=== PATIENT | female | born 1950 | race Caucasian/White ===

== ENCOUNTER → 2020-11-02 12:48 | Outpatient (CLI) | payer MEDICARE, SELFPAY ==
--- NOTE | ~2020-11-02 | CT_ITS ---
EXAMINATION: CT lung screening DATE: 11/02/2020 13:05 INDICATION: Lung cancer screening. Personal history of tobacco dependence. TECHNIQUE: Computed tomography (CT) of the chest was performed without intravenous contrast. The dose -length product was 117.15 mGy-cm. Automated exposure control and iterative reconstruction technique were employed. COMPARISON: Chest dated 06/18/2018 FINDINGS: Heart size is normal. No significant pleural or pericardial effusion. No thoracic lymphaden opathy. There is coronary atherosclerosis. There is a questionable hypodense mass of the pancreatic b ruthie seen on the final image 127. No endobronchial lesions. 2 mm left upper lobe nodule which is subso lid, image 36. No focal airspace consolidation. No endobronchial lesions. No lytic or blastic lesions are identified. IMPRESSION: 1. Lung-RADS category 2: Benign appearance or behavior. Continue annual screening with noncontrast lo w-dose chest CT in 12 months. 2: Subtle hypodensity of the pancreatic body which may represent partial volume averaging artifact, a lthough mass cannot be excluded. Correlation with contrast-enhanced CT abdomen recommended. Reviewed, dictated and finalized at location B. IMPRESSION: 1. Lung-RADS category 2: Benign appearance or behavior. Continue annual screeni ng with noncontrast low-dose chest CT in 12 months. 2: Subtle hypodensity of the pancreatic body which may represent partial volume averaging artifact, although mass cannot be excluded. Correlation with contras t-enhanced CT abdomen recommended.
== END ==
PROVIDERS: PCP Family Medicine; Visit Provider Family Medicine
DX: M81.0 Age-related osteoporosis without current pathological fracture (principal); Z12.2 Encounter for screening for malignant neoplasm of respiratory organs; Z87.891 Personal history of nicotine dependence; E55.9 Vitamin D deficiency, unspecified; E78.2 Mixed hyperlipidemia; I10 Essential (primary) hypertension; R73.03 Prediabetes
CPT/HCPCS: 71271

== ENCOUNTER → 2020-11-09 10:23 | Outpatient (CLI) | payer MEDICARE, SELFPAY ==
--- NOTE | ~2020-11-09 | DEXA_ITS ---
Bone Density Report Name: Danni Reid Age: 70 Sex: Female Ethnicity: White Date of : 1950 Indication: osteopenia; postmenopausal Referring Provider: BEBA MORENO Study: Bone densitometry was performed. Exam Date: November 09, 2020 Accession number: [id number] Bone Density: Region BMD T-score Z-score Classification AP Spine (L1-L4) 0.852 -1.8 0.3 Osteopenia Femoral Neck (Left) 0.795 -0.5 1.3 Normal Total Hip (Left) 1.016 0.6 2.1 Normal Femoral Neck (Right) 0.796 -0.5 1.3 Normal Total Hip (Right) 0.937 0.0 1.4 Normal Total Hip Mean 0.977 0.3 1.8 Normal World Health Organization criteria for BMD impression classify patients as: Normal (T-score at or above -1.0), Osteopenia (T-score between -1.0 and -2.5), or Osteoporosis (T-score at or below -2.5). 10-year Fracture Risk(1): Major Osteoporotic Fracture 8.8% Hip Fracture 0.8% Reported Risk Factors: [place] (), Neck BMD=0.796, BMI=33.1, alcohol use (1) FRAX(R) Version 3.08. Fracture probability calculated for an untreated patient. Fracture probability may be lower if the patient has received treatment. Previous Exams: Region Exam Age BMD T-score BMD Change BMD Change Date g/cm2 vs Baseline vs Previous AP Spine(L1-L4) 11/09/2020 70 0.852 -1.8 -0.040* -0.040* 07/14/2017 67 0.892 -1.4 Total Hip(Left) 11/09/2020 70 1.016 0.6 0.014 0.014 07/14/2017 67 1.002 0.5 Total Hip(Right) 11/09/2020 70 0.937 0.0 0.013 0.013 07/14/2017 67 0.924 -0.1 *Denotes significance at 95% confidence level, LSC for AP Spine = 0.022 g/cm2, LSC for Total Hip = 0.027 g/cm2 Clinical Information Provided by Patient: Has 3 or more alcoholic drinks per day Has used the following medications: Vitamin D Patient maximum height was 64 Menopause Age: 51 No regular weight bearing exercise Onset of menses at age 13 Number of children 1 Impression: The patient has low bone mass, based on the Total Spine T-score. The patient has an estimated ten-year risk of hip fracture of 0.8% and an estimated ten-year risk of major fracture of 8.8%, based on the WHO FRAX algorithm. The patient has risk factors, including: excessive alcohol use. The BMD for the AP Spine(L1-L4) decreased, changing by -0.040 since the last DXA exam. Discussion: BONE DENSITY IS LOW AT ONE OR MORE SKELETAL SITES. This patient's lowest T-score is low at on
== END ==
PROVIDERS: Visit Provider Family Medicine
DX: Z78.0 Asymptomatic menopausal state (principal); M85.88 Other specified disorders of bone density and structure, other site
CPT/HCPCS: 77080

== ENCOUNTER → 2020-11-13 13:48 | Outpatient (CLI) | payer MEDICARE, SELFPAY ==
--- NOTE | ~2020-11-13 | CT_ITS ---
EXAMINATION: CT abdomen w con DATE: 11/13/2020 14:14 INDICATION: Pancreas mass. TECHNIQUE: Computed tomography (CT) of the abdomen was performed with 100 mL Omnipaque 350 intravenou s contrast. Automated exposure control and iterative reconstruction technique were employed. The dose -length product was 635.80 mGy-cm. COMPARISON: Chest CT 11/02/2020 FINDINGS: The visualized portions of the lung bases demonstrates minimal atelectasis. There is mild p eripheral radiation fibrosis in anterolateral right lung. No pleural effusion. The heart size is norm al. No pericardial effusion. The liver demonstrates an ill-defined area of transient hepatic attenuat ion difference in segment 4A. There are gallstones in the gallbladder, which is normal in size. The s pleen, pancreas, adrenal glands, and kidneys are normal. There are no pathologically enlarged lymph n odes. There is no free intraperitoneal fluid. There is mild lumbar spondylosis. IMPRESSION: 1. Normal pancreas. 2. Cholelithiasis. Reviewed, dictated and finalized at location A.
[2020-11-13 14:07] LABS: Estimated Glomerular Filt Rate > 60
== END ==
PROVIDERS: PCP Family Medicine; Visit Provider Family Medicine
DX: R93.89 Abnormal findings on diagnostic imaging of other specified body structures (principal); R16.0 Hepatomegaly, not elsewhere classified; K80.20 Calculus of gallbladder without cholecystitis without obstruction; M47.816 Spondylosis without myelopathy or radiculopathy, lumbar region
CPT/HCPCS: 74160; Q9967

== ENCOUNTER → 2020-11-29 07:46 | Outpatient (CLI) | payer MEDICARE, SELFPAY ==
--- NOTE | ~2020-11-29 | MR_ITS ---
EXAMINATION: MR abdomen wo/w con DATE: 11/29/2020 08:55 INDICATION: Liver mass. Breast cancer. TECHNIQUE: Magnetic resonance imaging (MRI) of the abdomen was performed without and with 17 mL Multi Tricia intravenous contrast. Sequences included coronal T2-weighted FS FSE, coronal and axial FS FIEST A, axial T2-weighted FSE, coronal LAVA-flex, axial STIR FSE, axial DWI, axial dual-echo T1-weighted F SPGR, and axial LAVA. Postcontrast sequences included coronal LAVA-flex and a time course of axial LA VA. COMPARISON: CT abdomen 11/13/2020 FINDINGS: There is diffuse hepatic steatosis. In segment VIII of the liver, there is a 2.1 cm mass with periphe ral hyperenhancement. There is a 0.6 cm hyperenhancing mass in right hepatic lobe. There is a 1.1 cm hyperenhancing mass in left hepatic lobe. No washout. There is a 6 mm cyst in the liver. There are g allstones in the gallbladder, which is normal in size. The spleen, pancreas, adrenal glands, and kidn eys are normal. There are no dilated loops of bowel. There are no pathologically enlarged lymph nodes . There is no free intraperitoneal fluid. IMPRESSION: 1. Three liver masses measuring up to 2.1 cm, most likely benign. Metastatic disease cannot be exclud ed given the history of breast cancer. Abdomen MRI without and with contrast in 3-6 months is recomme nded. Reviewed, dictated and finalized at location A. IMPRESSION: 1. Three liver masses measuring up to 2.1 cm, most likely benign. Metastatic di sease cannot be excluded given the history of breast cancer. Abdomen MRI withou t and with contrast in 3-6 months is recommended.
[2020-11-29 08:28] LABS: Estimated Glomerular Filt Rate > 60
== END ==
PROVIDERS: PCP Family Medicine; Visit Provider Family Medicine
DX: R93.2 Abnormal findings on diagnostic imaging of liver and biliary tract (principal); Z85.3 Personal history of malignant neoplasm of breast
CPT/HCPCS: 74183; A9577

== ENCOUNTER → 2021-02-20 12:28 | Outpatient (CLI) | payer MEDICARE, SELFPAY ==
--- NOTE | ~2021-02-20 | MR_ITS ---
EXAMINATION: MR abdomen wo/w con INDICATION: Abnormal findings on diagnostic imaging of the liver and biliary tract, patient with inde terminate liver masses and history of breast cancer TECHNIQUE: Coronal SSFSE ARC, WATER:coronal LAVA-FLEX, Coronal 2D FIESTA FatSat, Axial SSFSE BH ARC, Axial 3D DualEcho BH, Axial SSFSE-IR, Axial DWI b=500, Axial 2D FIESTA FatSat, pre and dynamic postco ntrast Axial LAVA ARC, postcontrast Coronal In and Opposed phase LAVA FLEX COMPARISON: 11/29/2020, 11/13/2020 CONTRAST: Multihance, 15 cc FINDINGS: There is a stable 2.1 cm subcapsular enhancing mass in liver segment VIII with central hypo intensity. A 1.5 cm enhancing mass is present in liver segment II, unchanged in size accounting for d ifferences in technique. There is a stable 6 mm enhancing mass in liver segment VII. A stable 8 mm en hancing mass is noted in liver segment III. No new liver mass is identified. Stones are present in th e nondistended gallbladder. The spleen, pancreas, and adrenal glands are normal. The kidneys are unre markable. There are no pathologically enlarged abdominal lymph nodes. No dilated loops of bowel are p resent. IMPRESSION: 1. Probably benign liver masses. Follow-up MRI without and with contrast in six months is recommended . Reviewed, dictated and finalized at location B. IMPRESSION: 1. Probably benign liver masses. Follow-up MRI without and with contrast in six months is recommended.
[2021-02-20 13:35] LABS: Estimated Glomerular Filt Rate > 60
== END ==
PROVIDERS: PCP Family Medicine; Visit Provider Family Medicine
DX: R93.2 Abnormal findings on diagnostic imaging of liver and biliary tract (principal)
CPT/HCPCS: 74183; A9577

== ENCOUNTER → 2021-04-19 10:34 | Outpatient (CLI) | payer MEDICARE, SELFPAY ==
--- NOTE | ~2021-04-19 | XR_ITS ---
EXAMINATION: XR chest 2V 04/19/2021 12:05 INDICATION: Dyspnea. Dementia. PROCEDURE: 2 view chest COMPARISON: 06/18/2018 FINDINGS: The lungs are clear. The cardiomediastinal silhouette is within normal limits. There are no pleural effusions. There is no pneumothorax suspected. IMPRESSION: 1: NO ACUTE CARDIOPULMONARY DISEASE. Reviewed, dictated and finalized at location A.
--- NOTE | ~2021-04-19 | MR_ITS ---
EXAMINATION: MR brain/brain stem wo arleen EXAM DATE: 04/19/2021 11:05 INDICATION: F03.90 - Unspecified dementia without behavioral disturbance. History breast cancer. TECHNIQUE: Magnetic resonance imaging (MRI) of the brain/brain stem obtained without contrast. Moses al T1, axial diffusion, gradient echo (T2*), T1, T2, FLAIR sequences obtained. There is no prior st udy for comparison. FINDINGS: There are no areas of restricted diffusion to suggest acute infarction. There is no acute hemorrhage seen on the T2*, a hemosiderin sensitive sequence. No intraparenchymal brain mass lesion. There is mild to moderate periventricular and subcortical T2/FLAIR signal hyperintensity, nonspecifi c but probably related to small vessel ischemic disease (microangiopathy). There are no extra-axia l collections. Flow voids are seen in the cerebral arteries on the T2-weighted sequences consistent with their expected patency. The orbits are unremarkable. Soft tissue is unremarkable. IMPRESSION: 1. No acute intracranial findings. 2. Mild to moderate microangiopathy. Reviewed, dictated and finalized at location B.
== END ==
PROVIDERS: PCP Family Medicine; Visit Provider Physician Assistant Medical
DX: F03.90 Unspecified dementia, unspecified severity, without behavioral disturbance, psychotic disturbance, mood disturbance, and anxiety (principal); R93.0 Abnormal findings on diagnostic imaging of skull and head, not elsewhere classified
CPT/HCPCS: 70551; 71046

== ENCOUNTER → 2021-09-16 11:57 | Outpatient (CLI) | payer MEDICARE, SELFPAY ==
--- NOTE | ~2021-09-16 | MR_ITS ---
EXAMINATION: MR abdomen wo/w con INDICATION: Hepatomegaly not elsewhere specified TECHNIQUE: Coronal SSFSE ARC, WATER:coronal LAVA-FLEX, Coronal 2D FIESTA FatSat, Axial SSFSE BH ARC, Axial 3D DualEcho BH, Axial SSFSE-IR, Axial DWI b=500, Axial 2D FIESTA FatSat, pre and dynamic postco ntrast Axial LAVA ARC, postcontrast Coronal In and Opposed phase LAVA FLEX COMPARISON: 02/20/2021, 11/29/2020 CONTRAST: Multihance, 15 cc FINDINGS: The liver is diffusely low in attenuation when compared with the spleen, consistent with he patic steatosis. There are stable enhancing masses in liver segment VIII (2.1 cm), liver segment II ( 1.5 cm), liver segment VII (6 mm), and liver segment III (8 mm). No new liver mass is identified. The spleen, pancreas, and adrenal glands are normal. Stones are present in the nondistended gallbladder. The kidneys are unremarkable. There are no pathologically enlarged abdominal lymph nodes. No dilated loops of bowel are present. IMPRESSION: 1. Stable, probably benign liver masses. Consider follow-up MRI without and with contrast in one year . 2. Cholelithiasis without evidence of cholecystitis. 3. Diffuse hepatic steatosis. Reviewed, dictated and finalized at location A. L INSTALLER IMPRESSION: 1. Stable, probably benign liver masses. Consider follow-up MRI without and wit h contrast in one year. 2. Cholelithiasis without evidence of cholecystitis. 3. Diffuse hepatic steatosis.
[2021-09-16 12:22] LABS: Estimated Glomerular Filt Rate > 60
== END ==
PROVIDERS: PCP Family Medicine; Visit Provider Family Medicine
DX: R16.0 Hepatomegaly, not elsewhere classified (principal); K76.0 Fatty (change of) liver, not elsewhere classified; K80.20 Calculus of gallbladder without cholecystitis without obstruction
CPT/HCPCS: 74183; A9577

== ENCOUNTER → 2023-04-27 14:10 | Outpatient (CLI) | payer MEDICARE, SELFPAY ==
--- NOTE | ~2023-04-27 | CT_ITS ---
EXAMINATION: CT lung screening DATE: 04/27/2023 14:31 INDICATION: Personal history of tobacco dependence TECHNIQUE: Computed tomography (CT) of the chest was performed without intravenous contrast. The dose -length product was 118.63 mGy-cm. Automated exposure control and iterative reconstruction technique were employed. COMPARISON: CT dated 11/02/2020 FINDINGS: Heart size normal. No significant pleural or pericardial effusion. There are gallstones. No thoracic lymphadenopathy. There is atherosclerosis of the aorta and coronary arteries. Stable 2 mm l eft upper lobe nodule. No endobronchial lesions. No pneumothorax. No new pulmonary nodules or masses. Mild thoracic spondylosis. IMPRESSION: 1. Lung-RADS category 2: Benign appearance or behavior. Continue annual screening with noncontrast lo w-dose chest CT in 12 months. Reviewed, dictated and finalized at location B. IMPRESSION: 1. Lung-RADS category 2: Benign appearance or behavior. Continue annual screeni ng with noncontrast low-dose chest CT in 12 months.
--- NOTE | ~2023-04-27 | MR_ITS ---
EXAMINATION: MR abdomen wo/w con DATE: 04/27/2023 15:22 INDICATION: Hepatomegaly, not elsewhere classified. Liver mass. TECHNIQUE: Magnetic resonance imaging (MRI) of the abdomen was performed without and with 17 mL Multi Tricia intravenous contrast. COMPARISON: Abdomen MRI 09/16/2021, 11/29/20 FINDINGS: There is diffuse hepatic steatosis. There are 3 hyperenhancing masses in the liver without washout me asuring up to 2.5 cm. There are cysts in the liver measuring up to 6 mm. There are gallstones in the gallbladder, which is normal in size. The spleen, pancreas, adrenal glands, and kidneys are normal. T here are no dilated loops of bowel. There are no pathologically enlarged lymph nodes. There is no isabella e intraperitoneal fluid. IMPRESSION: 1. Three liver masses, stable from 11/29/2020, likely hemangiomas or focal nodular hyperplasia. 2. Diffuse hepatic steatosis. Reviewed, dictated and finalized at location A. IMPRESSION: 1. Three liver masses, stable from 11/29/2020, likely hemangiomas or focal nodul ar hyperplasia. 2. Diffuse hepatic steatosis.
== END ==
PROVIDERS: PCP Nurse Practitioner Family; Visit Provider Nurse Practitioner Family
DX: Z12.2 Encounter for screening for malignant neoplasm of respiratory organs (principal); Z87.891 Personal history of nicotine dependence; K76.0 Fatty (change of) liver, not elsewhere classified; K76.9 Liver disease, unspecified
CPT/HCPCS: 71271; 74183; A9577

== ENCOUNTER 2024-03-18 09:31 | Outpatient (CLI) | payer MEDICARE, SELFPAY ==
--- NOTE | ~2024-03-18 | MR_ITS ---
EXAMINATION: MR brain/brain stem wo con DATE: 03/18/2024 10:14 INDICATION: Memory loss. Dementia. TECHNIQUE: Magnetic resonance imaging (MRI) of the brain and brainstem was performed without intraven ous contrast. COMPARISON: Brain MRI 04/19/2021 FINDINGS: There are scattered areas of nonspecific increased T2-weighted signal intensity in the cere bral white matter and latoya. There is no intracranial hemorrhage, acute infarction, or abnormal intrac ranial mass lesion. The ventricles are normal in size. The orbits are normal. The paranasal sinuses a re clear. The mastoid air cells are normal. IMPRESSION: 1. Moderate nonspecific cerebral white matter disease and pontine disease, which likely represents ch ronic small vessel ischemic disease, stable from 04/19/2021. Reviewed, dictated and finalized at location A. IMPRESSION: 1. Moderate nonspecific cerebral white matter disease and pontine disease, whic h likely represents chronic small vessel ischemic disease, stable from 1.
== END 2024-03-18 09:32 ==
LOC: GOSHIMG 09:32
PROVIDERS: PCP Family Medicine; Visit Provider Family Medicine
DX: R41.3 Other amnesia (principal); F03.90 Unspecified dementia, unspecified severity, without behavioral disturbance, psychotic disturbance, mood disturbance, and anxiety; R90.82 White matter disease, unspecified; G93.89 Other specified disorders of brain
CPT/HCPCS: 70551

== ENCOUNTER 2024-09-09 01:03 | Day surgery (SDC) | payer MEDICARE, SELFPAY ==
[2024-09-06 13:24] VITALS: BMI 31.0
--- OUTSIDE RECORDS SUMMARY | 2024-09-09 01:08 | XMS_ITS | Encounter Summary ---
Author Organization [facility] Address 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
--- OUTSIDE RECORDS SUMMARY | 2024-09-09 01:08 | XMS_ITS | Encounter Summary ---
Author Organization [facility] Address [address] [place] [address] Care Team Providers Care Steel Rule Die Maker Name Role Phone Emory Domínguez MD Primary Care Provider [phone]- [phone] Encounter Details Date Type Department Care Team (Latest Contact Info) Description 02/27/2004 Outpatient Historical [facility] Yung Morales MD NO ADDRESS ON FILE SCREENING MAMM-MAILG NEOPL-OTHER (Primary Dx) Social History Tobacco Use Types Packs/Day Years Used Date Smoking Tobacco: Never Assessed Comments Unknown Sex and Gender Information Value Date Recorded Sex Assigned at Not on file Legal Sex Female 4:41 AM PERSONAL COMPANION Gender Identity Not on file Sexual Orientation Not on file documented as of this encounter Plan of Treatment Not on file documented as of this encounter Visit Diagnoses Diagnosis Other screening mammogram- Primary documented in this encounter Care Teams Steel Rule Die Maker Relationship Specialty Start Date End Date Emory Domínguez MD [address] [place] [id number] PCP - General 11/02/00 documented as of this encounter
--- OUTSIDE RECORDS SUMMARY | 2024-09-09 01:08 | XMS_ITS | Clinical Summary ---
Author Organization [facility] Address [address] [place] [address] Care Team Providers Care Paper Cone Machine Tender Name Role Phone Rehana Domínguez MD Primary Care Provider + Shahriar Alcocer MD Unavailable Pearl Reeves MD Unavailable [phone] Vidya Olvera PhD Unavailable [phone] Allergies No known active allergies Medications alendronate (FOSAMAX) 35 mg tabletIndications :Post-Menopausal Osteoporosis Prevention 05/26/2018 Active atorvastatin (LIPITOR) 10 mg tablet 06/01/2018 Active multivitamin tabletIndications :Vitamin Deficiency Prevention Active PARoxetine (PAXIL) 20 mg tablet Take 20 mg by mouth daily 2 04/07/2019 Active Active Problems Problem Noted Date Diagnosed Date 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 Cancer Staging:Clinical stage from 01/08/2015:Stage 0(cTis (DCIS), cN0, cM0, ER+, KS+, HER2: Not Assessed) - Signed by Vidya Olvera, PhD on 03/16/2019 Pathologic stage from 02/19/2015:Stage 0(pTis (DCIS), pN0, cM0, ER+, KS+, HER2: Not Assessed) - Signed by Vidya Olvera, PhD on 03/16/2019 History of breast cancer 06/20/2018 Surgical History Surgery Date Site/Laterality Comments BREAST LUMPECTOMY Medical History Medical History Date Comments Breast cancer (HCC) Family History Medical History Relation Name Comments Ovarian cancer Maternal Grandmother Breast cancer Mother Ovarian cancer Mother Ovarian cance r - (Added by TW Conv) Thyroid cancer Sister Relation Name Status Comments Maternal Grandmother Mother Sister Social History Tobacco Use Types Packs/Day Years Used Date Smoking Tobacco: Former Smokeless Tobacco: Never Alcohol Use Standard Drinks/Week Comments Yes 0 (1 standard drink = 0.6 oz pur e alcohol) Personal Safety Answer Date Recorded Getting School Help Needed Not on file 09/18 Comments No Sex and Gender Information Value Date Recorded Sex Assigned at Not on file Legal Sex Female 9:12 PM PROCESS HELPER Gender Identity Not on file Sexual Orientation Not on file Obstetrics History Last Filed Vital Signs Vital Sign Reading Time Taken Comments Blood Pressure - - Pulse - - Temperature - - Respiratory Rate - - Oxygen Saturation - - Inhaled Oxygen Concentration - - Weight 86.2 kg (190 lb) 08/24/2020 1:50 PM PROCESS HELPER Height 162.6 cm (5' 4 ) 08/24/2020 1:50 PM PROCESS HELPER Body Mass Index 32.61 08/24/2020 1:50 PM PROCESS HELPER Plan of Treatment Health Maintenance Due Date Last Done Comments Colon Cancer Screening-Colonoscopy 1950 Depression Screening 1950 Fall Risk Assessment 1950 Hepatitis C Screening 1950 Osteoporosis Screening-Bone Density Scan 1950 DTaP/Tdap/Td Vaccine (1 - Tdap) 1962 Hepatitis B Screening 1969 Zoster Vaccine (1 of 2) 2001 Pneumococcal vaccine 65+ (1 of 1 - PCV) 2016 Well Visit 65+ 2016 Influenza Vaccine (#1) 2024 05/30/2019, 2017 Breast Cancer Screening-Mammogram 11/01/2024 11/02/2023, 10/16/2022, 10/15/2021, Additional history exists Procedures Procedure Name Priority Date/Time Associated Diagnosis Comments SCREENING MAMMOGRAM BILATERAL W CARLY Schedule Routine, Read Routine (OP Routine) 11/02/2023 1:00 PM CDT Screening mammogram, encounter for from Last 3 Months or Most Recently Relevant to Health Maintenance Results * Screening Mammogram Bilateral W Carly (11/02/2023 1:00 PM CDT) Anatomical Region Laterality Modality Breast Bilateral Mammography Narrative 11/03/2023 11:25 AM CDT Mammogram Technique: Bilateral Digital Breast Tomosynthesis, Bilateral C-view 2D Screening mammogram. Views obtained: bilateral craniocaudal and bilateral mediolateral oblique. Computer Aided Detection was performed. Mammogram Findings: The present examination has been compared to prior imaging studies performed at [facility] on 08/24/2020, 10/15/2021 and 10/16/2022. There are scattered areas of fibroglandular density. There is no suspicious abnormality in either breast. Impression: There is no mammographic evidence of malignancy. Annual screening mammography is recommended. OVERALL FINAL ASSESSMENT: BI-RADS CATEGORY 1: Negative. Procedure Note Farida Zhu MD - 11/03/2023 Mammogram Technique: Bilateral Digital Breast Tomosynthesis, Bilateral C-view 2D Screening mammogram. Views obtained: bilateral craniocaudal and bilateral mediolateral oblique. Computer Aided Detection was performed. Mammogram Findings: The present examination has been compared to prior imaging studies performed at [facility] on 08/24/2020, 10/15/2021 and 10/16/2022. There are scattered areas of fibroglandular density. There is no suspicious abnormality in either breast. Impression: There is no mammographic evidence of malignancy. Annual screening mammography is recommended. OVERALL FINAL ASSESSMENT: BI-RADS CATEGORY 1: Negative. Self Screening Mammogram IMG MAMMO PROCEDURES Fi nal Result from Last 3 Months or Most Recently Relevant to Health Maintenance Insurance MEDICARE [facility] MEDICARE [facility] MEDICARE AARP Care Teams Paper Cone Machine Tender Relationship Specialty Start Date End Date Rehana Domínguez MD PCP - General 05/26/17 Shahriar Alcocer MD Radiation Oncologist Radiation Oncology 03/16/19 Pearl Reeves MD [address] [place] [address] Surgeon Surgical Oncology 03/16/19 Vidya Olvera, PhD [address] [place] [address] Nurse Practitioner Radiation Oncology 03/16/19
--- OUTSIDE RECORDS SUMMARY | 2024-09-09 01:08 | XMS_ITS | Encounter Summary ---
Author Organization [facility] Address [address] [place] [address] Care Team Providers Care Manager Of Photography Name Role Phone Emory Domínguez MD Primary Care Provider [phone] Encounter Details Date Type Department Care Team (Latest Contact Info) Description 08/22/1999 Outpatient Historical [facility] NAH[facility] Morales, Yung Jones MD NO ADDRESS ON FILE Family history of malignant neoplasm of breast (Primary Dx) Social History Tobacco Use Types Packs/Day Years Used Date Smoking Tobacco: Never Assessed Comments Unknown Sex and Gender Information Value Date Recorded Sex Assigned at Not on file Legal Sex Female 4:41 AM VISUAL 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
--- OUTSIDE RECORDS SUMMARY | 2024-09-09 01:08 | XMS_ITS | Referral Summary ---
Author Organization [facility] Address [address] [place] [address] Care Team Providers Care Golf Ball Marker Name Role Phone Rehana Domínguez MD Primary Care Provider + Shahriar Alcocer MD Unavailable Pearl Reeves MD Unavailable Vidya Olvera PhD Unavailable [phone] Allergies No known active allergies Medications [...] from 01/08/2015:Stage 0(cTis (DCIS), cN0, cM0, ER+, AL+, HER2: Not Assessed) - Signed by Vidya Olvera, PhD on 03/16/2019 Pathologic stage from 02/19/2015:Stage 0(pTis (DCIS), pN0, cM0, ER+, AL+, HER2: Not Assessed) - Signed by Vidya Olvera, PhD on 03/16/2019 History of breast cancer 06/20/2018 Social History Tobacco Use Types Packs/Day Years [...] on file Legal Sex Female 9:12 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 Gender Identity Not on file Sexual Orientation Not on file Last Filed Vital Signs Vital Sign Reading Time Taken Comments Blood Pressure - - Pulse - - Temperature - - Respiratory Rate - - Oxygen Saturation - - Inhaled Oxygen Concentration - - Weight 86.2 kg (190 lb) 08/24/2020 1:50 PM TAPPER HELPER Height 162.6 cm (5' 4 ) 08/24/2020 1:50 PM TAPPER HELPER Body Mass Index 32.61 08/24/2020 1:50 PM TAPPER HELPER Plan of Treatment Not on file Procedures Procedure Name Priority Date/Time Associated Diagnosis [...] compared to prior imaging studies performed at [facility] on 08/24/2020, 10/15/2021 and 10/16/2022. There are [...] compared to prior imaging studies performed at [facility] on 08/24/2020, 10/15/2021 and 10/16/2022. There are scattered areas of fibroglandular density. There is no suspicious abnormality in either breast. Impression: There is no mammographic evidence of malignancy. Annual screening mammography is recommended. OVERALL FINAL ASSESSMENT: BI-RADS CATEGORY 1: Negative. us Self Screening Mammogram IMG MAMMO PROCEDURES Fi nal Result from Last 3 Months or Most Recently Relevant to Health Maintenance Insurance [facility]ICARE [facility] MEDICARE [facility] MEDICARE [facility] Member Subscriber Plan / Payer ( fective 2017-Present) Name:Danni Reid Relation to Subscriber:Self Name:Danni Reid Payer ID:[id number] Group ID:[id number] Type:COMMERCIAL Address: [place] [phone] Care Teams Golf Ball Marker Relationship Specialty Start Date End Date Rehana Domínguez MD PCP - General 05/26/17 Shahriar Alcocer MD Radiation Oncologist Radiation Oncology 03/16/19 Pearl Reeves MD [address] [place] [address] Surgeon Surgical Oncology 03/16/19 Vidya Olvera, PhD [address] [place] [address] Nurse Practitioner Radiation Oncology 03/16/19
--- OUTSIDE RECORDS SUMMARY | 2024-09-09 01:08 | XMS_ITS | Encounter Summary ---
Author Organization [facility] Address 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
--- OUTSIDE RECORDS SUMMARY | 2024-09-09 01:08 | XMS_ITS | Clinical Summary ---
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 Gender Identity Not on file Sexual Orientation Not on file Plan of Treatment Health Maintenance Due Date Last Done Comments DTAP/TDAP/TD VACCINES (1 - Tdap) 1970 BREAST CANCER SCREENING 1991 COLORECTAL SCREENING 1996 Colorectal Cancer Screening 1996 FIT-DNA Q 3 years 1996 FIT/FOBT Q 1 year 1996 Flex Sig/CT Colonography Q 5 years 1996 PNEUMOCOCCAL VACCINE 65+ YEARS (1 of 1 - PCV) 04/01/20 ZOSTER VACCINE (1 of 2) 2001 OSTEOPOROSIS SCREENING 2016 INFLUENZA VACCINE (#1) 2024 RSV VACCINE (60+ or ) (1 - 1-dose 75+ series) 2026 Care Teams Manager Hvac Relationship Specialty Start Date End Date Emory Domínguez MD [address] [place] [phone] PCP - General 11/02/00
--- OUTSIDE RECORDS SUMMARY | 2024-09-09 01:08 | XMS_ITS | Encounter Summary ---
Author Organization [facility] Address 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
--- OUTSIDE RECORDS SUMMARY | 2024-09-09 01:08 | XMS_ITS | Encounter Summary ---
Author Organization [facility] Address 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
--- OUTSIDE RECORDS SUMMARY | 2024-09-09 01:08 | XMS_ITS | Encounter Summary ---
Author Organization [facility] Address [address] [place] [address] Care Team Providers Care Canvas Goods Supervisor Name Role Phone Emory Domínguez MD Primary Care Provider +1- [phone] Encounter Details Date Type Department Care Team (Latest Contact Info) Description 11/02/2000 Outpatient Historical HIS IMG-LAB [facility] Yung Morales MD NO ADDRESS ON FILE Other screening mammogram (Primary Dx) Social History Tobacco Use Types Packs/Day Years Used Date Smoking Tobacco: Never Assessed Comments Unknown Sex and Gender Information Value Date Recorded Sex Assigned at Not on file Legal Sex Female 4:41 AM CONCESSION 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
--- OUTSIDE RECORDS SUMMARY | 2024-09-09 01:08 | XMS_ITS | Encounter Summary ---
Author Organization [facility] Address [address] [place] [address] Care Team Providers Care Lifestyle Consultant Name Role Phone Rehana Domínguez MD Primary Care Provider + Shahriar Alcocer MD Unavailable Pearl Reeves MD Unavailable [phone] Vidya Olvera PhD Unavailable [phone] Encounter Details Date Type Department Care Team (Late st Contact Info) Description 10/15/2018 Telephone [facility] Advanced Medicine Radiation Oncology [address] [facility] [place] [address] Butch Cleveland CMA Social History Tobacco Use Types Packs/Day Years Used Date Smoking Tobacco: Former Smokeless Tobacco: Never Alcohol Use Standard Drinks/Week Comments Yes 0 (1 standard drink = 0.6 oz pur e alcohol) Comments No Sex and Gender Information Value Date Recorded Sex Assigned at Not on file Legal Sex Female 9:12 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 Gender Identity Not on file Sexual Orientation Not on file documented as of this encounter Plan of Treatment Not on file documented as of this encounter Visit Diagnoses Not on filedocumented in this encounter Care Teams Lifestyle Consultant Relationship Specialty Start Date End Date Rehana Domínguez MD PCP - General 05/26/17 Shahriar Alcocer MD Radiation Oncologist Radiation Oncology 03/16/19 Pearl Reeves MD [address] [place], [place] [phone] Surgeon Surgical Oncology 03/16/19 Vidya Olvera, PhD [address] [place] [address] Nurse Practitioner Radiation Oncology 03/16/19 documented as of this encounter
[2024-09-09 10:09] VITALS: BP 146/68; PULSE 87; RESP 16; TEMP 35.6; O2SAT 97
--- NOTE | 2024-09-09 10:14 | WPDANESEPPF ---
Anes - Initial Pre Proc Eval Procedure: Operation Date: 09/09/24 11:30 Proposed Procedures p Screening Colonoscopy - Yaya Chong MD Date/Time: 09/09/24 10:14 Surgeon: Yaya Chong MD Pre Op Diagnosis: Screening Patient Data Age: 74 Gender: F Height: 1.63 m Weight: 86.8 kg Last Vital Signs Temp 35.6 C L 09/09/24 10:09 Pulse 87 09/09/24 10:09 Resp 16 09/09/24 10:09 BP 146/68 H 09/09/24 10:09 Pulse Ox 97 09/09/24 10:09 O2 Del Method Room Air 09/09/24 10:09 Allergies Allergy/AdvReac Type Severity Reaction Status Date / Time No Known Allergies Allergy Mild NONE Verified 09/09/24 10:07 Home Medications ?Medication ?Instructions ?Recorded ?Confirmed ?Type atorvastatin 40 mg tablet 40 mg PO DAILY #90 tabs 02/29/24 09/09/24 Rx meclizine 25 mg tablet 25 mg PO BID PRN dizziness 03/11/24 09/09/24 History oxybutynin chloride 5 mg/5 mL oral 5 mg PO DAILY 03/11/24 09/09/24 History syrup hydrochlorothiazide 12.5 mg tablet 12.5 mg PO QAM #90 tabs 03/22/24 09/09/24 Rx bupropion HCl 150 mg 24 hr tablet, 150 mg PO QAM #90 tabs 04/20/24 09/09/24 Rx extended release paroxetine HCl 20 mg tablet See Rx Instructions .Route 06/15/24 09/09/24 Rx .COMPLEX #90 tabs Patient hx anesthesia problems: none Family hx anesthesia problems: none Results Review: All pre-operative results and documents have been reviewed as part of the pre-operative evaluation. 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 Pes anserinus bursitis of left knee Sebaceous cyst of labia Seborrheic keratosis Trigger little finger of left hand Family History Family History Mother Family history of Alzheimer's disease Family history of malignant neoplasm of breast in first degree relative Family history of malignant neoplasm of ovary Patient's mother is Father Family history of coronary artery disease Family history of cardiovascular disease Grandparent Family history of malignant neoplasm of ovary Social History Social History Social History: started 1ppd age 26 Caffeine- none Smoking packs per day: 1 Smoking cigarettes per day: 20.0 Years smoked: 15 Smoking pack-years: 15.00 Smoking status: Former smoker Tobacco type: cigarettes Smoking end date: 08/03/10 Alcohol intake: current Drinks per week: 8 Alcohol use details: 1-2 drinks nightly Substance use: never Substance use type: does not use Do You Feel Safe in your Home?: Yes Lack of Transportation: No Lack of Food: Never True Current Housing: I Have Housing Concerned About Future Housing: No Difficulty Paying Gas/Electric Bills: No Difficulty Paying for Meds: No Currently Unemployed: No Education: High School Diploma/GED Difficulty w/ Childcare or Family Care: No Living arrangements: with family Spiritual care concerns: No Anes - Eval Final PreProcedure Day of Procedure 09/09/24 10:14 Patient weight: obese Heart: regular rate and rhythm Lungs: decreased breath sounds Airway: Mallampati scale class II Neurological: alert and oriented Last oral intake: >/= 8 hours ASA classification: III Emergent: no Anesthetic plan: proceed Anesthesia type and monitoring: general GIVS and standard monitoring Results Review: All pre-operative results and documents have been reviewed as part of the pre-operative evaluation. Informed Consent: The patient's anesthetic plan and its attendant risks and benefits were discussed with the patient/family/POA. Questions were solicited and answers provided to the satisfaction of the patient/family/POA.
[2024-09-09] MEDS: LACTATED RINGERS 1,000 ML 150 ML IV CONT (10:17)
--- NOTE | 2024-09-09 10:26 | PM.HPGS ---
History of Present Illness History of Present Illness Consent: Risks, benefits, and alternatives have been discussed and questions answered. Patient agrees to proceed with procedure. 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 Pes anserinus bursitis of left knee Sebaceous cyst of labia Seborrheic keratosis Trigger little finger of left hand Family History Family History Mother Family history of Alzheimer's disease Family history of malignant neoplasm of breast in first degree relative Family history of malignant neoplasm of ovary Patient's mother is Father Family history of coronary artery disease Family history of cardiovascular disease Grandparent Family history of malignant neoplasm of ovary Social History Social History Social History: started 1ppd age 26 Caffeine- none Smoking packs per day: 1 Smoking cigarettes per day: 20.0 Years smoked: 15 Smoking pack-years: 15.00 Smoking status: Former smoker Tobacco type: cigarettes Smoking end date: 08/03/10 Alcohol intake: current Drinks per week: 8 Alcohol use details: 1-2 drinks nightly Substance use: never Substance use type: does not use Do You Feel Safe in your Home?: Yes Lack of Transportation: No Lack of Food: Never True Current Housing: I Have Housing Concerned About Future Housing: No Difficulty Paying Gas/Electric Bills: No Difficulty Paying for Meds: No Currently Unemployed: No Education: High School Diploma/GED Difficulty w/ Childcare or Family Care: No Living arrangements: with family Spiritual care concerns: No Meds Home Medications and Allergies Home Medications ?Medication ?Instructions ?Recorded ?Confirmed ?Type atorvastatin 40 mg tablet 40 mg PO DAILY #90 tabs 02/29/24 09/09/24 Rx meclizine 25 mg tablet 25 mg PO BID PRN dizziness 03/11/24 09/09/24 History oxybutynin chloride 5 mg/5 mL oral 5 mg PO DAILY 03/11/24 09/09/24 History syrup hydrochlorothiazide 12.5 mg tablet 12.5 mg PO QAM #90 tabs 03/22/24 09/09/24 Rx bupropion HCl 150 mg 24 hr tablet, 150 mg PO QAM #90 tabs 04/20/24 09/09/24 Rx extended release paroxetine HCl 20 mg tablet See Rx Instructions .Route 06/15/24 09/09/24 Rx .COMPLEX #90 tabs Allergies Allergy/AdvReac Type Severity Reaction Status Date / Time No Known Allergies Allergy Mild NONE Verified 09/09/24 10:07 Vital Signs Vital Signs - 24 hr 09/09/24 10:09 Temperature 96.1 F L Pulse Rate 87 Respiratory Rate 16 Blood Pressure 146/68 H Pulse Oximetry 97 Oxygen Delivery Room Air Exam Const: General: comfortable and no acute distress HENMT: Face/Nose/Sinus: Normal nares present Eyes: General: appearance normal, both eyes and all related structures Neck: Neck: no JVD Resp: Auscultation: clear to auscultation bilaterally Cardio: Rate: regular rate Rhythm: regular rhythm GI: Inspection: non-distended GI Palp: Yes Soft to palpation Skin: General skin exam: normal color Neuro: General: gait normal Speech: normal speech Extrem: General: normal to inspection Psych: Mental Status: mental status grossly normal Assessment and Plan Assessment and plan (1) Screening for colon cancer: Code(s): Z12.11 - Encounter for screening for malignant neoplasm of colon Status: Acute Assessment and Plan: colonoscopy
[2024-09-09 10:42] VITALS: BP 127/74; PULSE 78; RESP 15; O2SAT 96
[2024-09-09 10:52] VITALS: BP 132/67; PULSE 74; RESP 19; O2SAT 96
[2024-09-09 11:02] VITALS: BP 138/80; PULSE 70; RESP 20; O2SAT 98
== END 2024-09-09 11:22 | disposition home or self-care (01) ==
PROVIDERS: PCP Family Medicine; Referring Provider Student in an Organized Health Care Education/Training Program; Visit Provider Internal Medicine Gastroenterology
PROC: 0DJD8ZZ Inspection of Lower Intestinal Tract, Via Natural or Artificial Opening Endoscopic (ICD-10-PCS; CPT 45378; principal; 2024-09-09 11:30)
DX: Z12.11 Encounter for screening for malignant neoplasm of colon (principal); K63.5 Polyp of colon; K64.8 Other hemorrhoids; K57.30 Diverticulosis of large intestine without perforation or abscess without bleeding; M85.88 Other specified disorders of bone density and structure, other site; L82.1 Other seborrheic keratosis; E66.9 Obesity, unspecified; Z68.32 Body mass index [BMI] 32.0-32.9, adult; Z87.891 Personal history of nicotine dependence; Z85.3 Personal history of malignant neoplasm of breast; Z80.3 Family history of malignant neoplasm of breast; Z80.41 Family history of malignant neoplasm of ovary; Z82.49 Family history of ischemic heart disease and other diseases of the circulatory system
CPT/HCPCS: 45385; 88305; J2003; J2704; J7120

== ENCOUNTER 2025-04-19 14:15 | Outpatient (CLI) | payer MEDICARE, SELFPAY ==
--- NOTE | ~2025-04-19 | DEXA_ITS ---
Bone Density Report Name: MIGUE TIM Age: 75 Sex: Female Ethnicity: White Date of : 1950 Indication: osteopenia; height loss; cancer; Referring Provider: LORNA JUNIOR Study: Bone densitometry was performed. Exam Date: April 19, 2025 Accession number: [id number] Bone Density: Region BMD T-score Z-score Classification AP Spine(L1-L4) 0.897 -1.4 1.0 Osteopenia Femoral Neck (Left) 0.754 -0.9 1.2 Normal Total Hip (Left) 1.012 0.6 2.3 Normal Femoral Neck (Right) 0.746 -0.9 1.1 Normal Total Hip (Right) 0.939 0.0 1.7 Normal Total Hip Mean 0.975 0.3 2.0 Normal World Health Organization criteria for BMD impression classify patients as: Normal (T-score at or above -1.0), Osteopenia (T-score between -1.0 and -2.5), or Osteoporosis (T-score at or below -2.5). 10-year Fracture Risk(1): Major Osteoporotic Fracture 8.9% Hip Fracture 1.1% Reported Risk Factors: [place] (), Neck BMD=0.754, BMI=31.8 (1) FRAX(R) Version 3.08. Fracture probability calculated for an untreated patient. Fracture probability may be lower if the patient has received treatment. Previous Exams: Region Exam Age BMD T-score BMD Change BMD Change Date g/cm2 vs Baseline vs Previous AP Spine (L1-L4) 04/19/2025 75 0.897 -1.4 0.045 (5.3%)* 0.045 (5.3%)* 11/09/2020 70 0.852 -1.8 Total Hip(Left) 04/19/2025 75 1.012 0.6 -0.003 (-0.3%) -0.003 (-0.3%) 11/09/2020 70 1.016 0.6 Total Hip(Right) 04/19/2025 75 0.939 0.0 0.001 (0.1%) 0.001 (0.1%) 11/09/2020 70 0.937 0.0 *Denotes significance at 95% confidence level, LSC for AP Spine = 0.022 g/cm2, LSC for Total Hip = 0.027 g/cm2 Clinical Information Provided by Patient: Has used the following medications: Calcium Has the following medical conditions: Cancer Patient maximum height was 64.0 Menopause Age: 51 Onset of menses at age 14 Number of children 1 Impression: The patient has low bone mass, based on the Total Spine T-score. The patient has an estimated ten-year risk of hip fracture of 1.1% and an estimated ten-year risk of major fracture of 8.9%, based on the WHO FRAX algorithm. No significant bone loss was observed. Discussion: BONE DENSITY IS LOW AT ONE OR MORE SKELETAL SITES. This patient's lowest T-score is low at one or more skeletal sites. It meets the World Health Organization's (WHO) criteria for ?low bone mass? (T-score between -1.0 and -2.5). The patient's 10-year risk of fracture as calculated by FRAX is less than the threshold where pharmacological therapy is recommended by the National Osteoporosis Foundation (NOF). However, all treatment decisions require clinical judgment and consideration of individual patient factors, including patient preferences, comorbidities, previous drug use, risk factors not captured in the FRAX model (e.g., frailty, falls, vitamin D deficiency, increased bone turnover, interval significant decline in bone density) and possible under or overestimation of fracture risk by FRAX. The patient should follow a healthful lifestyle (good nutrition with adequate calcium and vitamin D, and appropriate weight-bearing exercise). Follow-Up: Consider repeating this study in 2 to 3 years to reassess this patient's status, or sooner if there is some new clinical indication. Reported by: DULCE on 04/19/2025 2:59:00 PM. Reviewed, dictated and finalized at location A.
--- OUTSIDE RECORDS SUMMARY | 2025-04-19 14:57 | XMS_ITS | Clinical Summary ---
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 Gender Identity Not on file Sexual Orientation Not on file Plan of Treatment Health Maintenance Due Date Last Done Comments DTAP/TDAP/TD VACCINES (1 - Tdap) 1970 BREAST CANCER SCREENING 1991 COLORECTAL SCREENING 1996 Colorectal Cancer Screening 1996 FIT-DNA Q 3 years 1996 FIT/FOBT Q 1 year 1996 Flex Sig/CT Colonography Q 5 years 1996 PNEUMOCOCCAL VACCINE 50+ YEARS (1 of 1 - PCV) 04/01/20 ZOSTER VACCINE (1 of 2) 2001 OSTEOPOROSIS SCREENING 2016 INFLUENZA VACCINE (#1) 2025 RSV VACCINE (60+ or ) (1 - 1-dose 75+ series) 2026 Care Teams Staffing Assistant Relationship Specialty Start Date End Date Emory Domínguez MD [address] [place] [phone] PCP - General 11/02/00
--- OUTSIDE RECORDS SUMMARY | 2025-04-19 14:57 | XMS_ITS | Encounter Summary ---
Author Organization [facility] Address [address] [place] [address] Care Team Providers Care Maintenance Groundman Name Role Phone Emory Domínguez MD Primary Care Provider +1- [phone] Encounter Details Date Type Department Care Team (Latest Contact Info) Description 08/22/1999 Outpatient Historical HIS [facility] NAHID Morales, Yung Jones MD NO ADDRESS ON FILE Family history of malignant neoplasm of breast (Primary Dx) Social History Tobacco Use Types Packs/Day Years Used Date Smoking Tobacco: Never Assessed Comments Unknown Sex and Gender Information Value Date Recorded Sex Assigned at Not on file Legal Sex Female 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
--- OUTSIDE RECORDS SUMMARY | 2025-04-19 14:57 | XMS_ITS | Encounter Summary ---
Author Organization [facility] Address 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
--- OUTSIDE RECORDS SUMMARY | 2025-04-19 14:57 | XMS_ITS | Encounter Summary ---
Author Organization [facility] Address [address] [place] [address] Care Team Providers Care Mannequin Maker Name Role Phone Emory Domínguez MD Primary Care Provider +1- [phone] Encounter Details Date Type Department Care Team (Latest Contact Info) Description 11/02/2000 Outpatient Historical HIS IMG-LAB 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
--- OUTSIDE RECORDS SUMMARY | 2025-04-19 14:57 | XMS_ITS | Encounter Summary ---
Author Organization [facility] Address 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
--- OUTSIDE RECORDS SUMMARY | 2025-04-19 14:57 | XMS_ITS | Encounter Summary ---
Author Organization [facility] Address [address] [place] [address] Care Team Providers Care Diamond Sorter Name Role Phone Rehana Domínguez MD Primary Care Provider + Shahriar Alcocer MD Unavailable Pearl Reeves MD Unavailable [phone] Vidya Olvera PhD Unavailable [phone] Encounter Details Date Type Department Care Team (Late st Contact Info) Description 10/15/2018 Telephone [facility] Advanced Medicine Radiation Oncology [address] [facility] [place] [address] Butch Cleveland CMA Social History Tobacco Use Types Packs/Day Years Used Date Smoking Tobacco: Former Smokeless Tobacco: Never Alcohol Use Standard Drinks/Week Comments Yes 0 (1 standard drink = 0.6 oz pur e alcohol) Comments No Sex and Gender Information Value Date Recorded Sex Assigned at Not on file Legal Sex Female 9:12 PM JAVA ANALYST Gender Identity Not on file Sexual Orientation Not on file documented as of this encounter Plan of Treatment Not on file documented as of this encounter Visit Diagnoses Not on filedocumented in this encounter Care Teams Diamond Sorter Relationship Specialty Start Date End Date Rehana Domínguez MD PCP - General 05/26/17 Shahriar Aloccer MD Radiation Oncologist Radiation Oncology 03/16/19 Pearl Reeves MD [address] [place], [place] [id number] Surgeon Surgical Oncology 03/16/19 Vidya Olvera, PhD [address] [place] [address] Nurse Practitioner Radiation Oncology 03/16/19 documented as of this encounter
--- OUTSIDE RECORDS SUMMARY | 2025-04-19 14:57 | XMS_ITS | Clinical Summary ---
Author Organization [facility] Address [address] [place] [address] Care Team Providers Care Fabric Worker Supervisor Name Role Phone Rehana Domínguez MD Primary Care Provider + Shahriar Alcocer MD Unavailable Pearl Reeves MD Unavailable [phone] Vidya Olvera PhD Unavailable [phone] Allergies No known active allergies Medications [...] from 01/08/2015:Stage 0(cTis (DCIS), cN0, cM0, ER+, AK+, HER2: Not Assessed) - Signed by Vidya Olvera, PhD on 03/16/2019 Pathologic stage from 02/19/2015:Stage 0(pTis (DCIS), pN0, cM0, ER+, AK+, HER2: Not Assessed) - Signed by Vidya [...] on file Legal Sex Female 9:12 PM GENERAL NEUROLOGIST Gender Identity Not on file Sexual Orientation Not on file Obstetrics History Last Filed Vital Signs Vital Sign Reading Time Taken Comments Blood Pressure - - Pulse - - Temperature - - Respiratory Rate - - Oxygen Saturation - - Inhaled Oxygen Concentration - - Weight 86.2 kg (190 lb) 08/24/2020 1:50 PM GENERAL NEUROLOGIST Height 162.6 cm (5' 4) 08/24/2020 1:50 PM GENERAL NEUROLOGIST Body Mass Index 32.61 08/24/2020 1:50 PM GENERAL NEUROLOGIST Plan of Treatment Health Maintenance Due Date Last Done Comments Colon Cancer Screening-Colonoscopy 1950 Depression Screening 1950 Fall Risk Assessment 1950 Hepatitis C Screening 1950 Osteoporosis Screening-Bone Density Scan 1950 DTaP/Tdap/Td Vaccine (1 - Tdap) 1962 Hepatitis B Screening 1969 Pneumococcal vaccine 65+ (1 of 1 - PCV) 2001 Zoster Vaccine (1 of 2) 2001 Well Visit 65+ 2016 Influenza Vaccine (#1) 2025 05/30/2019, 2017 Breast Cancer Screening-Mammogram 11/22/2025 11/22/2024, 11/02/2023, 10/16/2022, Additional history exists Procedures Procedure Name Priority Date/Time Associated Diagnosis Comments SCREENING MAMMOGRAM BILATERAL W CARLY Schedule Routine, Read Routine (OP Routine) 11/22/2024 10:53 AM CDT Screening mammogram, encounter for from Last 3 Months or Most Recently Relevant to Health Maintenance Results * Screening Mammogram Bilateral W Carly (11/22/2024 10:53 AM CDT) Anatomical Region Laterality Modality Breast Bilateral Mammography Narrative 11/22/2024 11:19 AM CDT Mammogram Technique: Bilateral Digital Breast Tomosynthesis, Bilateral C-view 2D Screening mammogram. Views obtained: bilateral craniocaudal and bilateral mediolateral oblique. Computer Aided Detection was performed. Mammogram Findings: The present examination has been compared to prior imaging studies performed at [facility] on 10/15/2021, 10/16/2022 and 11/02/2023. There are scattered areas of fibroglandular density. There are stable post breast conservation therapy changes in the right breast. There is no suspicious abnormality in either breast. Impression: There is no mammographic evidence of malignancy. Annual screening mammography is recommended. OVERALL FINAL ASSESSMENT: BI-RADS CATEGORY 2: Benign. Procedure Note Nadya Mcgowan MD - 11/22/2024 Mammogram Technique: Bilateral Digital Breast Tomosynthesis, Bilateral C-view 2D Screening mammogram. Views obtained: bilateral craniocaudal and bilateral mediolateral oblique. Computer Aided Detection was performed. Mammogram Findings: The present examination has been compared to prior imaging studies performed at [facility] on 10/15/2021, 10/16/2022 and 11/02/2023. There are scattered areas of fibroglandular density. There are stable post breast conservation therapy changes in the right breast. There is no suspicious abnormality in either breast. Impression: There is no mammographic evidence of malignancy. Annual screening mammography is recommended. OVERALL FINAL ASSESSMENT: BI-RADS CATEGORY 2: Benign. us Self Screening Mammogram IMG MAMMO PROCEDURES Fi nal Result from Last 3 Months or Most Recently Relevant to Health Maintenance Insurance MEDICARE [facility] MEDIC[facility] Care Teams Fabric Worker Supervisor Relationship Specialty Start Date End Date Rehana Domínguez MD PCP - General 05/26/17 Shahriar Alcocer MD Radiation Oncologist Radiation Oncology 03/16/19 Pearl Reeves MD [address] [place] [address] Surgeon Surgical Oncology 03/16/19 Vidya Olvera, PhD [address] [place] [address] Nurse Practitioner Radiation Oncology 03/16/19
--- OUTSIDE RECORDS SUMMARY | 2025-04-19 14:58 | XMS_ITS | Encounter Summary ---
Author Organization [facility] Address [address] [place] [address] Care Team Providers Care Tool And Die Engineer Name Role Phone Emory Domínguez MD Primary Care Provider [phone] Encounter Details Date Type Department Care Team (Latest Contact Info) Description 02/27/2004 Outpatient Historical HIS IMG-[facility] Yung Morales MD NO ADDRESS ON FILE SCREENING MAMM-MAILG NEOPL-OTHER (Primary Dx) Social History Tobacco Use Types Packs/Day Years Used Date Smoking Tobacco: Never Assessed Comments Unknown Sex and Gender Information Value Date Recorded Sex Assigned at Not on file Legal Sex Female 4:41 AM FLORAL DECORATOR Gender Identity Not on file Sexual Orientation Not on file documented as of this encounter Plan of Treatment Not on file documented as of this encounter Visit Diagnoses Diagnosis Other screening mammogram- Primary documented in this encounter Care Teams Tool And Die Engineer Relationship Specialty Start Date End Date Emory Domínguez MD [address] [place] [phone] PCP - General 11/02/00 documented as of this encounter
--- OUTSIDE RECORDS SUMMARY | 2025-04-19 14:58 | XMS_ITS | Encounter Summary ---
Author Organization [facility] Address [address] [place] [address] Care Team Providers Care Manager Union Name Role Phone Emory Domínguez MD Primary Care Provider [phone] Encounter Details Date Type Department Care Team (Latest Contact Info) Description 02/27/2005 Outpatient Historical HIS IMG-LAB [facility] Yung Morales MD NO ADDRESS ON FILE SCREENING MAMM-MAILG NEOPL-OTHER (Primary Dx) Social History Tobacco Use Types Packs/Day Years Used Date Smoking Tobacco: Never Assessed Comments Unknown Sex and Gender Information Value Date Recorded Sex Assigned at Not on file Legal Sex Female 4:41 AM RECORDS SPECIALIST Gender Identity Not on file Sexual Orientation Not on file documented as of this encounter Plan of Treatment Not on file documented as of this encounter Visit Diagnoses Diagnosis Other screening mammogram- Primary documented in this encounter Care Teams Manager Union Relationship Specialty Start Date End Date Emory Domínguez MD [address] [place] [phone] PCP - General 11/02/00 documented as of this encounter
--- OUTSIDE RECORDS SUMMARY | 2025-04-19 14:58 | XMS_ITS | Encounter Summary ---
Author Organization [facility] Address [address] [place] [address] Care Team Providers Care Clearing Inspector Name Role Phone Emory Domínguez MD Primary Care Provider [phone] Encounter Details Date Type Department Care Team (Latest Contact Info) Description 02/13/2003 Outpatient Historical HIS IMG-LAB [facility] Yung Morales MD NO ADDRESS ON FILE SCREENING MAMM-MAILG NEOPL-OTHER (Primary Dx) Social History Tobacco Use Types Packs/Day Years Used Date Smoking Tobacco: Never Assessed Comments Unknown Sex and Gender Information Value Date Recorded Sex Assigned at Not on file Legal Sex Female 4:41 AM COMMUNITY 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
== END 2025-04-19 14:16 | disposition home or self-care (01) ==
LOC: ANHFOHIMG 14:21
PROVIDERS: PCP Family Medicine; Visit Provider Student in an Organized Health Care Education/Training Program
DX: M85.88 Other specified disorders of bone density and structure, other site (principal); Z78.0 Asymptomatic menopausal state
CPT/HCPCS: 77080